=== PATIENT | female | born 1960 | race Caucasian/White ===

== ENCOUNTER → 2017-02-10 | Outpatient (CLI) | payer OTHER | END | disposition home or self-care (01) | LOC: US 07:30 → MAMMO 10:00 | DX: N60.01 Solitary cyst of right breast (principal); N63 Unspecified lump in breast ==

== ENCOUNTER → 2017-05-25 | Outpatient (CLI) | payer OTHER | END | disposition home or self-care (01) | LOC: US 13:00 | DX: N60.01 Solitary cyst of right breast (principal); N60.11 Diffuse cystic mastopathy of right breast ==

== ENCOUNTER → 2018-08-04 | Outpatient (CLI) | payer OTHER | END | disposition home or self-care (01) | LOC: MAMMO 07:20 | DX: Z12.31 Encounter for screening mammogram for malignant neoplasm of breast (principal) ==

== ENCOUNTER → 2019-12-06 | Outpatient (CLI) | payer BC | END | disposition home or self-care (01) | LOC: MAMMO 13:55 | DX: Z12.31 Encounter for screening mammogram for malignant neoplasm of breast (principal) ==